=== PATIENT | male | born 1995 | race American Indian/Alaskan Native ===

== ENCOUNTER 2017-04-09 11:40 | Emergency (ER) | payer OTHER ==
--- NOTE | 2017-04-09 13:11 | XRay Report ---
RIGHT HAND, 3 views: History: Pain Subtle nondisplaced fracture lines are identified the distal phalanx of the third digit. No calcified callus. The remaining bony structures and joint spaces are within normal limits. IMPRESSION: Traumatic fracture, distal phalanx, third digit.
[2017-04-09] MEDS ORDERED: ULTRAM PO ONE (14:21)
[2017-04-09] MEDS ORDERED: TRIMOX PO ONE (14:28)
--- NOTE | 2017-04-09 14:28 | Emergency Department Report ---
Upper Extremity - [facility] Chief Complaint: Extremity Injury, Upper Stated Complaint: HAND PAIN Time Seen by Provider: 04/09/17 14:15 Upper Extremity: Right Middle Finger Occurred When: >5 Days Mechanism: Hit with Object Severity: moderate Symptoms: Yes Pain with Movement, Yes Deformity, Yes Limited Range of Movement, Yes Swelling, Yes Bruising/Ecchymosis, No Numbness, No Weakness, No Laceration or Abrasion ED Review of Systems ROS: Stated complaint: HAND PAIN Other details as noted in HPI Comment: All other systems reviewed and negative Musculoskeletal: as per HPI ED Past Medical Hx - Past Medical History Previous Medical History?: No - Surgical History Past Surgical History?: No - Family History Family history: no significant - Social History Smoking Status: Current Every Day Smoker Substance Use Type: None - Medications Home Medications: Home Medications Medication Instructions Recorded Confirmed Last Taken Type Amoxicillin [Trimox CAP] 500 mg PO BID #20 capsule 04/09/17 Unknown Rx traMADol [Ultram] 50 mg PO Q6HR PRN #12 tablet 04/09/17 Unknown Rx Upper Extremity Exam - Exam General: Vital signs noted. No distress. Alert and acting appropriately. Head and Torso: No HEENT Abnormality, No Neck Tenderness, No Chest/Lungs Abnormality, No Abdominal Tenderness, No Back Tenderness Shoulder Exam: Yes Normal Range of Motion in Shoulder, No Shoulder Tenderness, No Clavicle Tenderness, No Shoulder Deformity, No AC Joint Tenderness Arm Exam: No Arm/Humerus Tenderness, No Arm Deformity Elbow: Yes Normal Range of Motion in Elbow, No Elbow Tenderness, No Elbow Deformity Forearm: No Forearm Tenderness, No Forearm Deformity, No Pain with Pronation, No Pain with Supination Wrist: No Wrist Tenderness, No Normal ROM in Wrist, No Wrist Deformity, No Snuffbox Tenderness, No Pain with Axial Thumb Compression Hand: Yes Digit Tenderness, Yes Digit(s) Deformity, No Hand Tenderness, No Hand Deformity, No Normal ROM in Digit(s), No Tendon Dysfunction CMS Exam: Yes Normal Distal Pulses, Yes Normal Capillary Refill, Yes Normal Distal Sensation, No Broken Skin ED Course Vital Signs 04/09/17 12:29 Temperature 98.4 F Pulse Rate 83 Respiratory 16 Rate Blood Pressure 124/69 O2 Sat by Pulse 98 Oximetry - Reevaluation(s) Reevaluation #1: er 3 weeks after dropping object on his finger at work he states it progressively got worse middle finger w subungal that is old attempt to cauterize unsuccessful for blood xray noted small non displaced fx splint and antibiotics discussed with pt that he needs to follow up for subungal and monitoring of the nail. ED Medical Decision Making - Radiology Data Radiology results: report reviewed, image reviewed - Medical Decision Making see note - Differential Diagnosis fx finger w subungal old Critical care attestation.: If time is entered above; I have spent that time in minutes in the direct care of this critically ill patient, excluding procedure time. ED Disposition Clinical Impression: Finger fracture, Hematoma, subungual, finger Disposition: TO HOME OR SELFCARE Is pt being admited?: No Does the pt Need Aspirin: No Condition: Stable Instructions: Subungual Hematoma (ED), Finger Fracture (ED) Additional Instructions: finger splint soak in epsom salts three times per day for 20 minutes antibiotic until gone motrin or tylenol for mild pain ultram for moderate pain follow up with ortho this week. Prescriptions: Amoxicillin [Trimox CAP] 500 mg PO BID #20 capsule traMADol [Ultram] 50 mg PO Q6HR PRN #12 tablet PRN Reason: Pain Referrals: PRIMARY CAREMD [Primary Care Provider] - 3-5 Days JOVANNI SMITH MD [Staff Physician] - 3-5 Days Time of Disposition: 14:29
[2017-04-09 18:47] VITALS: BP 126/79
== END 2017-04-09 17:00 | disposition home or self-care (01) ==
LOC: ED 11:40
DX: S62.632A Displaced fracture of distal phalanx of right middle finger, initial encounter for closed fracture (principal); F17.210 Nicotine dependence, cigarettes, uncomplicated; X58.XXXA Exposure to other specified factors, initial encounter; Y93.89 Activity, other specified; Y92.89 Other specified places as the place of occurrence of the external cause; Y99.8 Other external cause status
CPT/HCPCS: 99283